=== PATIENT | male | born 1965 | race African-American/Black ===

== ENCOUNTER 2017-08-25 11:16 | Emergency (ER) | payer SELFPAY ==
[~2017-08-25] VITALS: Ht 193 cm; Wt 113.6 kg
[2017-08-25 11:45] VITALS: BP 136/87
[2017-08-25] MEDS ORDERED: KETOROLAC TROMETHAMINE 60 MG/2 ML VIAL IM ONE (12:15)
[2017-08-25] MEDS ORDERED: ONDANSETRON HCL 4 MG/2 ML VIAL IM ONE (12:15)
[2017-08-25 12:37] LABS: INFLUENZA TYPE B NEGATIVE FOR TYPE B (NEGATIVE)
== END 2017-08-25 13:39 | disposition home or self-care (01) ==
LOC: EMS 11:18
DX: J06.9 Acute upper respiratory infection, unspecified (principal); F17.210 Nicotine dependence, cigarettes, uncomplicated
CPT/HCPCS: 87804; 96372; 99284; J1885; J2405

== ENCOUNTER 2018-04-13 09:36 | Emergency (ER) | payer MEDICARE ==
[~2018-04-13] VITALS: Ht 188 cm; Wt 120.5 kg
[2018-04-13] MEDS ORDERED: TAMS-1 PO (09:41)
[2018-04-13] MEDS ORDERED: KETOROLAC TROMETHAMINE 60 MG/2 ML VIAL IM ONE (11:30)
[2018-04-13 12:20] VITALS: BP 136/91
[2018-04-13 12:24] LABS: GLUCOSE,POINT OF CARE 108 MG/DL (70-110)
== END 2018-04-13 13:55 | disposition home or self-care (01) ==
LOC: EMS 09:37
DX: S72.421A Displaced fracture of lateral condyle of right femur, initial encounter for closed fracture (principal); S83.91XA Sprain of unspecified site of right knee, initial encounter; M25.551 Pain in right hip; F17.210 Nicotine dependence, cigarettes, uncomplicated; V04.99XA Pedestrian with other conveyance injured in collision with heavy transport vehicle or bus, unspecified whether traffic or nontraffic accident, initial encounter; Y93.89 Activity, other specified; Y92.89 Other specified places as the place of occurrence of the external cause; Y99.8 Other external cause status
CPT/HCPCS: 29505; 73562; 82962; 96372; 99284; 99406; J1885

== ENCOUNTER 2018-06-14 13:40 | Emergency (ER) | payer MEDICARE ==
[~2018-06-14] VITALS: Ht 188 cm; Wt 131.3 kg
[~2018-06-14 13:40] MED LIST: TAMS-1 PO
[2018-06-14] MEDS ORDERED: EPINEPHrine 1:10,000 [1 MG/10 ML] SYRINGE IVP ONE (13:42)
[2018-06-14] MEDS ORDERED: SODIUM BICARBONATE [ADULT] 8.4% 50 MEQ/50 ML SYRINGE IVP ONE (13:42)
[2018-06-14] MEDS ORDERED: NALOXONE HCL 1 MG/ML 2 ML SYG IM ONE (13:42)
[2018-06-14] MEDS ORDERED: ATROPINE SULFATE 0.1 MG/ML 10 ML SYRINGE IVP ONE (13:42)
[2018-06-14 13:59] VITALS: BP 0/0
[2018-06-14 14:24] LABS: GLUCOSE,POINT OF CARE 79 MG/DL (70-110)
== END 2018-06-14 19:30 | disposition expired ==
LOC: EMS 13:41
DX: I46.9 Cardiac arrest, cause unspecified (principal); F17.210 Nicotine dependence, cigarettes, uncomplicated
CPT/HCPCS: 82962; 92950; 99285; J0171; J0461; J2310; J3490